=== PATIENT | female | born 1950 | race Caucasian/White ===

== ENCOUNTER 2024-01-11 05:22 | Inpatient (IN) ==
--- NOTE | 2023-12-31 13:38 | Anesthesiology Consultation ---
Date of Service December 31, 2023 Assessment & Plan (1) Encounter for pre-operative examination: Plan - cardiology office visit 12/30/23: "...nonprogressive functional class II shortness of breath and fatigue...less frequent intermittent nonexertional/exertional episodes of substernal chest heaviness/tightness which last few minutes and resolve spontaneously...leg swelling is improved...pacemaker interrogation from 05/18/2023 is reviewed and showed atrial paced 18% ventricular paced 1%, no significant arrhythmia. continue medical therapy for CAD, has 95% sub branch of D1 which is a small vessel, not amenable for a stent...follow up 3 months..." - cardiology clearance 12/10/23: "...low to intermediate cardiac risk..." - [facility] pacemaker. - check BSG am DOS. - Per automotive service assistant on 12/10/23: No known infectious disease contacts, current infectious disease symptoms in past 10 days or COVID positive test result in the past 30 days. Chart Review Chart Review: Acceptable Risk for Surgery and Patient NOT seen in Pre Admission Testing History Surgery Operation Date: 01/11/24 08:00 Proposed Procedures p Left Common Femoral Endarterectomy and - Guicho Ruffin MD s Left Lower Extremity Angiogram with Intervention - Guicho Ruffin MD Height/Weight Height: 4 ft 9 in Weight: 95.708 kg Allergies Allergy/AdvReac Type Severity Reaction Status Date / Time adhesive tape Allergy Unknown surgical Verified 12/10/23 11:52 tape with blood work only per pt - bruising. naproxen [From Aleve] Allergy Unknown itchiness Verified 12/10/23 11:52 Medications Home Medications Medication Instructions Recorded Confirmed Last Taken acetaminophen 500 mg tablet 1,000 mg PO UD PRN Pain 12/10/23 12/10/23 Unknown (Tylenol Extra Strength) aspirin 81 mg tablet,delayed 81 mg PO QAM 12/10/23 12/10/23 Unknown release clopidogrel 75 mg tablet 75 mg PO DAILY 12/10/23 12/10/23 Unknown furosemide 20 mg tablet 20 mg PO QAM 12/10/23 12/10/23 Unknown glimepiride 4 mg tablet 4 mg PO QAM 12/10/23 12/10/23 Unknown insulin glargine 100 unit/mL (3 20 unit subcut HS 12/10/23 12/10/23 Unknown mL) subcutaneous pen (Basaglar KwikPen U-100 Insulin) isosorbide mononitrate 30 mg 30 mg PO QAM 12/10/23 12/10/23 Unknown tablet,extended release 24 hr lisinopril 20 mg tablet 20 mg PO QAM 12/10/23 12/10/23 Unknown magnesium oxide 400 mg PO QPM 12/10/23 12/10/23 Unknown metformin 500 mg tablet 500 mg PO BID 12/10/23 12/10/23 Unknown sbaxhcmu-zsbb-yzxv 8 mg-folic 400 1 tab PO DAILY 12/10/23 12/10/23 Unknown mcg-K 50 mcg-lutein 300 mcg tablet (Centrum Silver Women) nitroglycerin 0.4 mg sublingual 0.4 mg sublingual UD PRN Chest Pain 12/10/23 12/10/23 Unknown tablet pantoprazole 40 mg tablet,delayed 40 mg PO QAM 12/10/23 12/10/23 Unknown release propranolol 20 mg tablet 20 mg PO BID 12/10/23 12/10/23 Unknown rosuvastatin 10 mg tablet 10 mg PO HS 12/10/23 12/10/23 Unknown Past Medical History Medical History (Updated 12/31/23 @ 13:36 by Preeti Rubio PA-C) Acid reflux CAD (coronary artery disease) Diabetes IDDM History of fractured vertebra lumbar HTN (hypertension) Hyperlipidemia Low kidney function Oxygen decrease uses O2 3 L PRN. Pulmonary hypertension Mild to moderate pulmonary hypertension, RVSP 41-46 mmHg Sleep apnea cpap with oxygen (5L). Vascular problem blockage in both legs. Upcoming sx for left. Past Surgical History Surgical History History of cardiac cath mutliple for chest pain, total of 6 stents. Most recent cath: Nov 2023 no stent(s) placed. ([facility]) History of cholecystectomy History of left cataract surgery History of pacemaker (04/08/10) electrical problem per/no other details known. [facility] Carter, last check: approx 09/2023. History of right cataract surgery Social History Smoking Status: Former smoker Do You Dip or Chew Tobacco: No Smoking End Date: 14-15 yr ago. Hx Alcohol Use: No Hx Substance Use: No substance use type: does not use Testing Laboratory Results 12/13/23 WBC: 6.3 H/H: 12/ PLATELETS: 197,000 SODIUM: 138 POTASSIUM: 4.2 CHLORIDE: 103 CO2: 24 BUN: 19 CREATININE: 1.1 GLUCOSE: 180 PT: 13 PTT: 27 INR: 1.1 Electrocardiogram Date: 12/13/23 NSR, rate [address] abnormality Chest X-Ray Date: 12/13/23 No acute cardiopulmonary abnormality. Echocardiogram Date: 02/16/23 EF 55% Mild aortic stenosis (MARIE 1.4 cm2, mean gradient 11 mmHg) Mild aortic valve regurgitation Mild to moderate tricuspid regurgitation Mild to moderate pulmonary hypertension, RVSP 41-46 mmHg No diastolic dysfunction Stress Test Date: 03/01/23 Anterior wall ischemia and apical ischemia EF 75% Cardiac Catheterization Date: 03/19/23 LAD: 30% stenosis, 95% stenosis 1st diagonal lesion; in-stent restenosis Left main: minimal luminal irregularities Cx: 40% stenosis RCA: 30% stenosis, in-stent restenosis Continue medical therapy Other Testing Pacemaker report 11/16/23 [facility] Carter DDD Normal remote follow-up. No significant device-related abnormalities were noted. No events
[2024-01-11] MEDS: LACTATED RINGER'S 1,000 ML IV SCH ×2 (06:00→13:47)
[2024-01-11] MEDS ORDERED: HYDROmorphone INJ 1 MG/ML SYRINGE IV PRN (07:19)
[2024-01-11] MEDS ORDERED: fentaNYL citrate PF 100 MCG/2 ML VIAL IV PRN (07:19)
[2024-01-11] MEDS ORDERED: fentaNYL citrate PF 100 MCG/2 ML VIAL ONE ×2 (07:19→08:51)
[2024-01-11] MEDS ORDERED: ePHEDrine sulfate 50 MG/ML AMP IV PRN (07:19)
[2024-01-11] MEDS ORDERED: PROMETHAZINE HCL 6.25 MG in SODIUM CHLORIDE 0.9% 50 ML IV PRN (07:19)
[2024-01-11] MEDS ORDERED: ATROPINE SULFATE 0.1 MG/ML 10ML SYR IV PRN (07:19)
[2024-01-11] MEDS ORDERED: ONDANSETRON INJ 2 MG/ML 2 ML VIAL IV PRN ×2 (07:19→12:46)
[2024-01-11] MEDS ORDERED: ONDANSETRON INJ 2 MG/ML 2 ML VIAL ONE (07:20)
[2024-01-11] MEDS ORDERED: ROCURONIUM BROMIDE 10 MG/ML 5 ML VIAL IV ONE ×2 (07:20→09:19)
[2024-01-11] MEDS ORDERED: LIDOCAINE 2% 2 ML VIAL/AMP(20MG/ML) INFIL ONE (07:20)
[2024-01-11] MEDS ORDERED: PROPOFOL IV EMULSION 10 MG/ML 20 ML VIAL IV ONE ×2 (07:20→10:59)
[2024-01-11] MEDS ORDERED: DEXAMETHASONE SOD INJ 4 MG/ML VIAL ONE (07:20)
--- NOTE | 2024-01-11 07:41 | History & Physical Report ---
Date of Service January 11, 2024 Assessment & Plan (1) Claudication of left lower extremity: Plan: Patient is admitted for left common femoral endarterectomy and intervention of the left lower extremity. I have discussed the risks options and benefits of the procedure with the patient. The patient understands the risks options and benefits and agrees to the procedure. History of Present Illness Chief Complaint: Left leg claudication Primary Care Provider: Rodney Fung MD Ms. 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 She also has history of hypertension, DM, cancer, heart disease, kidney disease and CAD s/p [address] ents in [id number]. Patient also has a pacemaker placed 2010. Of note, she states that April or May of this year, she underwent cardiac catheterization given that she had sudden chest pressure and was found to have a new small occlusion of one of her coronaries but was told this area was not amenable to stenting. Her medications were optimized by the cardiology team. She is also on DAPT. Since then, she has not had any other symptoms of chest pain or SOB. As far as her lower extremity PAD, she does have significant lifestyle limiting claudication and can barely walk from the parking lot into the office without having pain. She gets pain after walking about 30 ft consistently. She also has rest pain that wakes her up multiple nights a week (L>R). She also sometimes wakes up at night because her left toes feel tight. When she is sitting, she can sometimes see rubor of her left toes. Patient has a 2 PPD smoking history for 40 years. She has not had any wounds on her lower extremities. She is on a statin. Patient has an angiogram from her supervisor lace tearing that shows significant left common femoral artery stenosis involving the origin of the profunda as well as the SFA. There is also a left SFA occlusion with distal reconstitution of the popliteal almost at the level of the knee. There is two vessel runoff via AT and peroneal to about the level of the mid calf. No further images available for evaluation. Allergies Allergy/AdvReac Type Severity Reaction Status Date / Time adhesive tape Allergy Unknown surgical Verified 01/11/24 05:56 tape with blood work only per pt - bruising. naproxen [From Aleve] Allergy Unknown itchiness Verified 01/11/24 05:56 Home Medications Medication Instructions Recorded Confirmed Type acetaminophen 500 mg tablet 1,000 mg PO UD PRN Pain 12/10/23 01/11/24 History (Tylenol Extra Strength) aspirin 81 mg tablet,delayed 81 mg PO QAM 12/10/23 01/11/24 History release clopidogrel 75 mg tablet 75 mg PO DAILY 12/10/23 01/11/24 History furosemide 20 mg tablet 20 mg PO QAM 12/10/23 01/11/24 History glimepiride 4 mg tablet 4 mg PO QAM 12/10/23 01/11/24 History insulin glargine 100 unit/mL (3 20 unit subcut HS 12/10/23 01/11/24 History mL) subcutaneous pen (Basaglar KwikPen U-100 Insulin) isosorbide mononitrate 30 mg 30 mg PO QAM 12/10/23 01/11/24 History tablet,extended release 24 hr lisinopril 20 mg tablet 20 mg PO QAM 12/10/23 01/11/24 History magnesium oxide 400 mg PO QPM 12/10/23 01/11/24 History metformin 500 mg tablet 500 mg PO BID 12/10/23 01/11/24 History nufwfzjz-yacu-iprf 8 mg-folic 400 1 tab PO DAILY 12/10/23 01/11/24 History mcg-K 50 mcg-lutein 300 mcg tablet (Centrum Silver Women) nitroglycerin 0.4 mg sublingual 0.4 mg sublingual UD PRN Chest Pain 12/10/23 01/11/24 History tablet pantoprazole 40 mg tablet,delayed 40 mg PO QAM 12/10/23 01/11/24 History release propranolol 20 mg tablet 20 mg PO BID 12/10/23 01/11/24 History rosuvastatin 10 mg tablet 10 mg PO HS 12/10/23 01/11/24 History Past Med/Surg History Problem List (Updated 01/11/24 @ 07:40 by Guicho Ruffin MD) Claudication of left lower extremity Encounter for pre-operative examination Medical History CAD (coronary artery disease) Pulmonary hypertension Mild to moderate pulmonary hypertension, RVSP 41-46 mmHg Oxygen decrease uses O2 3 L PRN. Diabetes IDDM Sleep apnea cpap with oxygen (5L). History of fractured vertebra lumbar Vascular problem blockage in both legs. Upcoming sx for left. Acid reflux HTN (hypertension) Hyperlipidemia Low kidney function Surgical History History of left cataract surgery History of right cataract surgery History of cholecystectomy History of cardiac cath mutliple for chest pain, total of 6 stents. Most recent cath: Nov 2023 no stent(s) placed. ([facility]) History of pacemaker (04/08/10) electrical problem per/no other details known. [facility] [facility], last check: approx 09/2023. Social History Smoking Status: Former smoker Tobacco Type: Cigarettes Smoking End Date: 14-15 yr ago.; Do You Dip or Chew Tobacco: No; Hx Alcohol Use: No Hx Substance Use: No Preferred Language: Wallisian Communication Ability: Effective Communication Ability Comment: Sister helps with interview, helps with care giving. Building Rental Superintendent Required: No Beliefs That Will Affect Care: None Current Living Situation: Alone Other Information That Helps Us Care for You: Yes (inquiring with sxn office about post op home care/planned wound vac.) Feels Safe at Home: Yes Assistive Devices: CPAP, Denture - Upper and Walker Assistive Devices Comment: cpap with oxygen 5 L at night. Oxygen prn 3L. Review of Systems All systems reviewed & are unremarkable except as noted in HPI & below Physical Exam Physical Exam: Physical exam: NAD. BP 144/64 on the right, 136/64 on the left. HR is 64. Saturating 93% on RA. Patient is obese. Lungs are clear. Heart has a rrr. Abdominal exam is benign. Unable to palpate femoral pulses. Bilateral lower extremities are warm bilaterally. The left foot has slightly decreased sensation compared to the right but overall sensation is preserved. Motor is intact in bilateral lower extremities. No open wounds visible. Left toes have dependent rubor. Otherwise, no discoloration of the lower extremities. Left foot has monophasic AT and PT signals and right foot has biphasic AT and PT signals. Results & Data Vital Signs (Past 12 Hours) Vital Signs Temp Pulse Resp BP BP Pulse Ox O2 Del Method 01/11/24 06:01 136/81 01/11/24 05:49 36.9 C 73 20 169/7 H 93 Room Air
--- OUTSIDE RECORDS SUMMARY | 2024-01-11 07:43 | External Medical Summary | Continuity of Care Document ---
Author Name Unknown Organization [facility] [address] [facility] Address [address] [place], [place] [id number] Care Team Providers Care Payroll Assistant Name Role Phone Rodney Fung Primary Care Physician [phone] [facility]counter [id number] Date(s): 12/07/23 - 12/07/23 [facility] [address], [address] [place] [address] [phone] Encounter Diagnosis Atherosclerosis of [place] arteries of extremities with intermittent claudication, bilateral legs(Discharge Diagnosis) - 12/07/23 Discharge Disposition: Home or Self Care Attending Physician: MD Ruffin Eugene J Referring Physician: MD Jace, Geronimo Allergies, Adverse Reactions, Alerts Substance Criticality Severity Reaction Reaction Severity Status Aleve Hives Active Tape Bruising Active Medications aspirin 81 mg oral delayed release tablet Start: 12/07/23 2:28:00 PM EDT, 1 tab, PO, Daily Start Date: 12/07/23 Status: Ordered Basaglar KwikPen 100 units/mL subcutaneous solution INJECT 20 UNITS INTO THE SKIN AT BEDTIME Start Date: 12/07/23 Status: Ordered Centrum Silver oral tablet Start: 12/07/23 2:28:00 PM EDT, 1 tab, PO, Daily Start Date: 12/07/23 Status: Ordered clopidogrel 75 mg oral tablet TAKE ONE TABLET BY MOUTH DAILY DIRECTED Start Date: 12/07/23 Status: Ordered furosemide 20 mg oral tablet TAKE ONE TABLET BY MOUTH EVERY DAY Start Date: 12/07/23 Status: Ordered glimepiride 4 mg oral tablet TAKE ONE TABLET BY MOUTH DAILY WITH BREAKFAST OR FIRST MEAL OF THE DAY Start Date: 12/07/23 Status: Ordered isosorbide mononitrate 30 mg oral tablet, extended release TAKE ONE TABLET BY MOUTH EVERY DAY IN THE MORNING Start Date: 12/07/23 Status: Ordered lisinopril 20 mg oral tablet TAKE ONE TABLET BY MOUTH EVERY DAY Start Date: 12/07/23 Status: Ordered magnesium oxide 400 mg (241.3 mg elemental magnesium) oral tablet Start: 12/07/23 2:29:00 PM EDT, 1 tab, PO, Daily, leg cramps Start Date: 12/07/23 Status: Ordered metFORMIN 500 mg oral tablet TAKE TWO TABLETS BY MOUTH TWICE DAILY WITH MEALS Start Date: 12/07/23 Status: Ordered pantoprazole 40 mg oral delayed release tablet TAKE ONE TABLET BY MOUTH EVERY DAY Start Date: 12/07/23 Status: Ordered propranolol 20 mg oral tablet TAKE ONE TABLET BY MOUTH TWICE DAILY Start Date: 12/07/23 Status: Ordered rosuvastatin 10 mg oral tablet TAKE ONE TABLET BY MOUTH AT BEDTIME Start Date: 12/07/23 Status: Ordered Mental Status 12/07/23 Barriers to Learning one year None evide nt Mandatory Health Literacy Documentation Yes Health Literacy Communication Barriers N ever Primary Language Sami Problem List Condition Confirmation Course Effective Dates Status Health St atus Informant (atherosclerosis) Confirmed Active Diagnosis Diagnosis Type Effective Dates Health Status Clinical Service Informant Atherosclerosis of [place] arteries of extremities with intermittent claudication, bilateral legs Discharge Diagnosis 12/07/23 Vital Signs Most recent to oldest [Reference Range]: 1 2 Heart Rate 64 bpm (12/07/23 2:49 PM) Blood Pressure 144/64mmHg (12/07/23 2:56 PM) 136/64mmHg (12/07/23 2:49 PM) Cuff Pulse Pressure 80 mmHg (12/07/23 2:56 PM) 72 mmHg (12/07/23 2:49 PM) BP Location # 1 Right Arm (12/07/23 2:56 PM) Left Arm (12/07/23 2:49 PM) Social History Social History Type Response Smoking Status Former Smoker, quit > 1 yr Sex Female Sex Representation Female (finding) Patient Care team information Care Team Personnel Name: MD Antonieta, Rodney Bender Position: Referring Member Role: Primary Care Provider Address: [address] [place] [id number] [place]
[2024-01-11] MEDS: ceFAZolin 2000MG 2,000 MG/15 ML SYR IV SCH ×2 (08:00→17:28)
[2024-01-11] MEDS: BUPIVACAINE/EPINEPHRINE 0.5% MPF 1:200,000 30 ML VIAL ONE (09:03)
[2024-01-11] MEDS: PAPAVERINE HCL INJ 30 MG/ML 2 ML VIAL ONE (09:03)
[2024-01-11] MEDS: LIDOCAINE 1% LOCAL 20 ML VIAL ONE (09:03)
[2024-01-11] MEDS ORDERED: GLYCOPYRROLATE 0.2 MG/ML VIAL ONE (09:06)
[2024-01-11] MEDS ORDERED: diphenhydrAMINE 50 MG/ML VIAL ONE (09:06)
[2024-01-11] MEDS ORDERED: PHENYLEPHRINE HCL 10 MG/ML VIAL ONE (09:07)
[2024-01-11] MEDS ORDERED: DexMEDEtomidine HCL IV 100 MCG/ML VIAL IV ONE (09:11)
[2024-01-11] MEDS ORDERED: HEPARIN SOD (PORCINE) 1000 UNIT/ML ONE (09:32)
[2024-01-11] MEDS: GELATIN SPONGE SZ 100 ONE (10:32)
[2024-01-11] MEDS: THROMBIN FOR SOLN 20000 UNIT KIT ONE (10:33)
[2024-01-11] MEDS: ceFAZolin 330 MG/ML 1 GM VIAL ONE (10:33)
[2024-01-11] MEDS ORDERED: SUGAMMADEX SODIUM 200 MG/2 ML VIAL IV ONE (10:34)
--- NOTE | 2024-01-11 10:38 | Post Operative Brief Note ---
Immediate Post Op Note Date of Surgery January 11, 2024 Pre & Post Diagnosis Operation Date: 01/11/24 08:00 Pre-Op Diagnosis: Claudication of left lower extremity Post-Op Diagnosis: Claudication of left lower extremity I identified the patient and participated in the time-out.: Yes Procedure Operation Date: 01/11/24 08:00 Actual Procedures p Left Common Femoral Endarterectomy (Left) with bovine patch- Guicho Ruffin MD s Left Lower Extremity Angiogram with Intervention(Left) - Guicho Ruffin MD Surgeon Guicho Ruffin MD Child Welfare Caseworker MD Anel L.Minarchick,PAC Estimated Blood Loss 100 Findings Consistent with Post-Op Diagnosis Drains Fermin Catheter (16 [place] 10mL balloon Fermin catheter inserted prior to start of procedure by Billie Puentes RN) Anesthesia Type General Complications none Disposition Accompanied Patient To Recovery: No Disposition: Recovery Room
[2024-01-11] MEDS: VISIPAQUE IV ONE (10:45)
[2024-01-11] MEDS: HEPARIN (PORCINE) 1000 UNIT/ML 10 ML (CATH LAB USE ONLY) ONE (10:51)
--- NOTE | 2024-01-11 10:58 | Operative Report ---
Post Operative Report Pre & Post Diagnosis Operation Date: 01/11/24 08:00 Pre-Op Diagnosis: Claudication of left lower extremity Post-Op Diagnosis: Claudication of left lower extremity I identified the patient and participated in the time-out.: Yes Procedure Operation Date: 01/11/24 08:00 Actual Procedures p Left Common Femoral Endarterectomy (Left) - Guicho Ruffin MD s Left Lower Extremity Angiogram(Left) - Guicho Ruffin MD Surgeon Guicho Ruffin MD Field Irrigation Worker MD Tari Tam,PAC Estimated Blood Loss 100 Findings Consistent with Post-Op Diagnosis Severely calcified left common femoral artery, SFA and profunda. Following endarterectomy with patch angioplasty there was a good pulse throughout the BLOCKERS SKIVER, SFA and profunda. On angiogram there was a mid and distal SFA occlusion with reconstitution of the above knee popliteal artery with two vessel runoff to the foot Specimens None Anesthesia Type General Complications None Disposition Accompanied Patient To Recovery: Yes Indications Lifestyle limiting claudication of the left lower extremity Description of Procedure The patient was taken to the operating room and placed in the supine position. General endotracheal anesthesia was induced. The left groin and left leg were prepped and draped in the usual sterile fashion. A longitudinal incision was made over the common femoral artery using a #15 blade scalpel. Dissection was carried down through subcutaneous tissue using electrocautery followed by Metzenbaum scissions. The left common femoral artery and then the distal left external iliac artery, left profunda femoris, and left SFA were dissected free and controlled with vessel loops. Patient was systemically heparinized with a goal ACT of > 200. Following heparin administration the aforementioned arteries were clamped in order A #11 blade was then used to make an arteriotomy in the BLOCKERS SKIVER. Gonzalez scissors were used to extend proximally and distally. There was a heavily calcified plaque in the BLOCKERS SKIVER extending into the SFA and profunda. This was endarterectomized. Patch angioplasty was then performed of the left BLOCKERS SKIVER defect with a bovine pericardial patch using 5-0 Prolene suture. Just prior to completion of the patch all clamped vessels were allowed to backbleed and the artery was flushed with heparinized saline. The patch was then completed and all vessels unclamped. The SFA was then accessed with a micropuncture needle and using modified Seldinger technique a 5Fr micropuncture sheath was advanced into the BLOCKERS SKIVER. A diagnostic angiogram of the left leg was performed. There was no proximal disease with the profunda briskly filling the above knee popliteal artery through collaterals due to a distal SFA occlusion. The common was patent with good flow. At completion, there was an excellent Doppler signal throughout the proximal and distal profunda. The wound was closed with running 2-0 Vicryl sutures followed by 3-0 running subcutaneous Vicryl sutures. The skin was closed with austin. A total of 15cc contrast, 0.2min fluoro time and 27 mGy were used for the case Dr. Ruffin was present and scrubbed for the entire procedure. I attest to the content of the Intraoperative Record and any orders documented therein. Any exceptions are noted below. Supervising Physician Co-Signing Physician Notes Guicho Ruffin MD
[2024-01-11] MEDS ORDERED: NITROGLYCERIN SL 0.4 MG/TAB TAB SL PRN (12:46)
[2024-01-11] MEDS ORDERED: MoRPHine SULFATE 4 MG/ML 1 ML CARP\\VIAL IV PRN (12:46)
--- NOTE | 2024-01-11 13:15 | Critical Care Consultation ---
Date of Consultation January 11, 2024 Assessment & Plan (1) Claudication of left lower extremity: (2) CAD (coronary artery disease): (3) Pulmonary hypertension: (4) Diabetes: (5) Sleep apnea: (6) HTN (hypertension): (7) Hyperlipidemia: Plan 2D echo 02/16/2023: EF 55%, mild AI, mild to moderate TR, mild to moderate pulmonary hypertension -- Claudication of the left lower extremity S/p left common femoral endarterectomy 01/11/[address] Ruffin Monitor H&H Monitor for signs of ischemia --Pulmonary hypertension Combination of type II and III --BETTY On CPAP at home --History of coronary artery disease S/p stents last 1 being in 2004 Continue with Plavix and aspirin -- Dyslipidemia Continue with rosuvastatin -- Diabetes type 2 Continue with ICU hypoglycemia protocol --Prophylaxis VTE: None GI: Pantoprazole Lines: Peripheral Diet: Cardiac Plan: Monitor H&H Monitor pulse of the lower extremities with the help of Doppler Tylenol for headache Continue with patient's home CPAP machine Would recommend to keep O2 saturation between 90-92% given history of pulmonary hypertension Please note the above document was generated using voice recognition software. It may contain grammatical, syntax or spelling errors.Any formal questions or concerns about the content, text or information contained within the body of this dictation should be directly addressed to the provider for clarification. History of Present Illness Attending Physician: Guicho Ruffin MD History of Present Illness 73-year-old female present to the hospital for left femoral endarterectomy Past medical history: Peripheral vascular disease with left BASS FISHER stenosis as well as SFA occlusion, diabetes, CKD, coronary artery disease s/p stents, history of pacemaker Was transferred to the ICU post surgery for monitoring At the time of examination patient was not in any respiratory distress She was saturating 98% on 4 L nasal cannula, I went down to 2 L Denied any chest pain, no shortness of breath No abdominal pain, no nausea vomiting Did complain of some headache for which she was getting Tylenol. No blurry vision No dysuria or diarrhea prior to coming to the hospital Social history: [id number] smoking, quit in 2009 Allergies Allergy/AdvReac Type Severity Reaction Status Date / Time adhesive tape Allergy Unknown surgical Verified 01/11/24 05:56 tape with blood work only per pt - bruising. naproxen [From Aleve] Allergy Unknown itchiness Verified 01/11/24 05:56 Home Medications Medication Instructions Recorded Confirmed Type acetaminophen 500 mg tablet 1,000 mg PO UD PRN Pain 12/10/23 01/11/24 History (Tylenol Extra Strength) aspirin 81 mg tablet,delayed 81 mg PO QAM 12/10/23 01/11/24 History release clopidogrel 75 mg tablet 75 mg PO DAILY 12/10/23 01/11/24 History furosemide 20 mg tablet 20 mg PO QAM 12/10/23 01/11/24 History glimepiride 4 mg tablet 4 mg PO QAM 12/10/23 01/11/24 History insulin glargine 100 unit/mL (3 20 unit subcut HS 12/10/23 01/11/24 History mL) subcutaneous pen (Basaglar KwikPen U-100 Insulin) isosorbide mononitrate 30 mg 30 mg PO QAM 12/10/23 01/11/24 History tablet,extended release 24 hr lisinopril 20 mg tablet 20 mg PO QAM 12/10/23 01/11/24 History magnesium oxide 400 mg PO QPM 12/10/23 01/11/24 History metformin 500 mg tablet 500 mg PO BID 12/10/23 01/11/24 History skdjhbzg-uqir-deae 8 mg-folic 400 1 tab PO DAILY 12/10/23 01/11/24 History mcg-K 50 mcg-lutein 300 mcg tablet (Centrum Silver Women) nitroglycerin 0.4 mg sublingual 0.4 mg sublingual UD PRN Chest Pain 12/10/23 01/11/24 History tablet pantoprazole 40 mg tablet,delayed 40 mg PO QAM 12/10/23 01/11/24 History release propranolol 20 mg tablet 20 mg PO BID 12/10/23 01/11/24 History rosuvastatin 10 mg tablet 10 mg PO HS 12/10/23 01/11/24 History Patient History Medical History CAD (coronary artery disease) Pulmonary hypertension Mild to moderate pulmonary hypertension, RVSP 41-46 mmHg Oxygen decrease uses O2 3 L PRN. Diabetes IDDM Sleep apnea cpap with oxygen (5L). History of fractured vertebra lumbar Vascular problem blockage in both legs. Upcoming sx for left. Acid reflux HTN (hypertension) Hyperlipidemia Low kidney function Surgical History History of left cataract surgery History of right cataract surgery History of cholecystectomy History of cardiac cath mutliple for chest pain, total of 6 stents. Most recent cath: Nov 2023 no stent(s) placed. ([facility]) History of pacemaker (04/08/10) electrical problem per/no other details known. [facility], last check: approx 09/2023. Social History Smoking Status: Former smoker Tobacco Type: Cigarettes Smoking End Date: 14-15 yr ago.; Do You Dip or Chew Tobacco: No; Hx Alcohol Use: No Hx Substance Use: No Preferred Language: Lao Communication Ability: Effective Communication Ability Comment: Sister helps with interview, helps with care giving. Plant Floor Automation Manager Required: No Beliefs That Will Affect Care: None Current Living Situation: Alone Other Information That Helps Us Care for You: Yes (inquiring with sxn office about post op home care/planned wound vac.) Feels Safe at Home: Yes Assistive Devices: CPAP, Denture - Upper and Walker Assistive Devices Comment: cpap with oxygen 5 L at night. Oxygen prn 3L. Review of Systems Review of Systems: All systems reviewed & are unremarkable except as noted in HPI & below Physical Exam Physical Exam: Constitutional: No acute distress HEENT: EOMI, PERRLA Respiratory system: Good air entry bilaterally, no wheeze, no rhonchi, no crackles CVS: S1-S2 positive, 2 out of 6 systolic murmur appreciated best at aorta Abdomen: Soft, nontender, nondistended, positive bowel sounds x4 Extremities: +1 pulses bilaterally radialis/ dorsalis pedis, no cyanosis, no edema Neuro: Awake alert oriented x3 Psych: Normal mood and affect G/U: Positive Fermin Skin: no rashes, warm and dry Lymphatic: no cervical or axillary lymphadenopathy Results & Data Results & Data Vital Signs (Past 12 Hours) Vital Signs Temp Pulse Pulse Resp BP BP Pulse Ox 01/11/24 12:10 36.6 C 78 20 136/60 97 01/11/24 11:50 36.4 C L 77 17 131/56 L 94 01/11/24 11:40 77 16 128/81 94 01/11/24 11:30 78 20 136/68 94 01/11/24 11:20 80 18 138/65 95 01/11/24 11:14 36.5 C 81 16 138/84 96 01/11/24 06:01 136/81 01/11/24 05:49 36.9 C 73 20 169/7 H 93 O2 Del Method O2 Flow Rate 01/11/24 12:10 Nasal Cannula 4 01/11/24 11:50 Nasal Cannula 4 01/11/24 11:40 Nasal Cannula 4 01/11/24 11:30 Oxymask 5 01/11/24 11:20 Oxymask 5 01/11/24 11:14 Oxymask 13 01/11/24 06:01 01/11/24 05:49 Room Air Coding Level of Care Code 07789 IN/OBS CONSULT LVL 3,45M Diagnoses Claudication of left lower extremity I73.9 CAD (coronary artery disease) I25.10 Pulmonary hypertension I27.20 Diabetes E11.9 Sleep apnea G47.30 HTN (hypertension) I10 Hyperlipidemia E78.5
[2024-01-11] MEDS: ACETAMINOPHEN 500 MG TAB PO PRN (13:26)
--- NOTE | 2024-01-11 15:41 | Anesthesiology Progress Note ---
Date of Service January 11, 2024 Anesthesia Post Procedure Vital Signs Vital Signs: Temp Pulse Pulse Resp BP BP Pulse Ox 01/11/24 12:10 36.6 C 78 20 136/60 97 01/11/24 11:50 36.4 C L 77 17 131/56 L 94 01/11/24 11:40 77 16 128/81 94 01/11/24 11:30 78 20 136/68 94 01/11/24 11:20 80 18 138/65 95 01/11/24 11:14 36.5 C 81 16 138/84 96 01/11/24 06:01 136/81 01/11/24 05:49 36.9 C 73 20 169/7 H 93 O2 Del Method O2 Flow Rate 01/11/24 12:10 Nasal Cannula 4 01/11/24 11:50 Nasal Cannula 4 01/11/24 11:40 Nasal Cannula 4 01/11/24 11:30 Oxymask 5 01/11/24 11:20 Oxymask 5 01/11/24 11:14 Oxymask 13 01/11/24 06:01 01/11/24 05:49 Room Air Transfer of Care Handoff Completed per policy Notes Mental Status: alert / awake / arousable and participated in evaluation Patient Amnestic to Procedure: Yes Nausea / Vomiting: adequately controlled Pain: adequately controlled Airway Patency, RR, SpO2: stable & adequate BP & HR: stable & adequate Hydration State: stable & adequate Anesthetic Complications: no major complications apparent and Pt Satisfied with anesthetic care
[2024-01-11] MEDS ORDERED: PHARMACY GLYCEMIC MGMT CONSULT PRN (17:56)
[2024-01-11] MEDS ORDERED: GLUCOSE 40% GEL 15 GM TUBE PO PRN (18:15)
[2024-01-11] MEDS ORDERED: CARBOHYDRATES FOR HYPOGLYCEMIA PO PRN (18:15)
[2024-01-11] MEDS ORDERED: GLUCOSE 10 TAB/TUBE PO PRN (18:15)
[2024-01-11] MEDS ORDERED: GLUCAGON FOR INJ 1 MG VIAL SQ PRN (18:15)
[2024-01-11] MEDS ORDERED: DEXTROSE 50% 50 ML SYRINGE IV PRN (18:15)
[2024-01-11] MEDS: INSULIN ASPART PER UNIT CHARGE SC SCH (18:26)
[2024-01-11] MEDS: PROPRANOLOL HCL 20 MG TAB PO SCH (20:26)
[2024-01-11] MEDS: ROSUVASTATIN CALCIUM 10 MG TAB PO SCH (20:26)
[2024-01-11] MEDS: LANTUS PER UNIT CHARGE SC SCH (20:27)
[2024-01-11] MEDS: MAGNESIUM OXIDE 400 MG TAB PO SCH (20:27)
[2024-01-11] MEDS ORDERED: LANTUS PER UNIT CHARGE SC ONE (21:15)
[2024-01-11] MEDS: LANTUS PER UNIT CHARGE SC ONE (21:39)
[2024-01-12] MEDS: INSULIN ASPART PER UNIT CHARGE SC SCH (00:12)
[2024-01-12 04:51] LABS: Basophils # (auto) 0.06 K/uL (0.00-0.20); Basophils % (auto) 0.7 %; Eosinophils # (auto) 0.16 K/uL (0.00-0.50); Eosinophils % (auto) 1.7 %; Hematocrit (blood only) 31.5 % (37.0-47.0); Hemoglobin 10.4 g/dl (12.0-16.0); Immature Granulocytes # (auto) 0.02 K/uL (0.01-0.20); Immature Granulocytes % (auto) 0.2 %; Lymphocytes # (auto) 1.65 K/uL (1.20-3.40); Lymphocytes % (auto) 17.9 %; Mean Corpuscular Volume 90.8 fL (80.0-100.0); Mean Platelet Volume 10.6 fL (9.4-12.4); Monocytes # (auto) 0.96 K/uL (0.11-0.59); Monocytes % (auto) 10.4 %; Neutrophils # (auto) 6.36 K/uL (1.40-6.50); Neutrophils % (auto) 69.1 %; Platelet Count 217 K/uL (130-400); RDW Standard Deviation 46.5 fL (36.4-46.3); Red Blood Count 3.47 M/uL (4.20-5.40); White Blood Count 9.21 K/ul (4.8-10.8)
[2024-01-12 04:58] LABS: BUN Creatinine Ratio 11.5 (10-20); Creatinine Clr Calc Pharmacy 47.4 ml/min; Potassium 4.1 mmol/L (3.5-5.1)
[2024-01-12 05:26] LABS: Magnesium 1.7 mg/dl (1.7-2.4); Phosphorus 3.7 mg/dl (2.5-4.9)
[2024-01-12 07:04] LABS: Estimated Average Glucose 206 mg/dl; Hemoglobin A1C 8.8 % (4.5-5.6)
[2024-01-12] MEDS ORDERED: ACETAMINOPHEN 500 MG TAB PO PRN (07:29)
[2024-01-12] MEDS: FUROSEMIDE 20 MG TAB PO SCH (08:33)
[2024-01-12] MEDS: MULTIVITAMIN TAB PO SCH (08:33)
[2024-01-12] MEDS: ASPIRIN 81 MG ECTAB PO SCH (08:33)
[2024-01-12] MEDS: PANTOprazole 40 MG TAB PO SCH (08:33)
[2024-01-12] MEDS: CLOPIDOGREL BISULFATE 75 MG TAB PO SCH (08:33)
[2024-01-12] MEDS: lisinopril 20 MG TAB PO SCH (08:33)
[2024-01-12] MEDS: ISOSORBIDE MONO EXTENDED REL 30 MG TABCR PO SCH (08:33)
[2024-01-12] MEDS ORDERED: GLIMEPIRIDE 2 MG TAB PO SCH (09:00)
--- NOTE | 2024-01-12 10:45 | Critical Care Progress Note ---
Date of Service January 12, 2024 Assessment & Plan (1) Claudication of left lower extremity: (2) CAD (coronary artery disease): (3) Pulmonary hypertension: (4) Diabetes: (5) Sleep apnea: (6) HTN (hypertension): (7) Hyperlipidemia: Plan 2D echo 02/16/2023: EF 55%, mild AI, mild to moderate TR, mild to moderate pulmonary hypertension -- Claudication of the left lower extremity S/p left common femoral endarterectomy 01/11/[address] Ruffin Monitor H&H Monitor for signs of ischemia --Normocytic anemia Monitor H&H --Pulmonary hypertension Combination of type II and III --BETTY On CPAP at home --History of coronary artery disease S/p stents last 1 being in 2004 Continue with Plavix and aspirin -- Dyslipidemia Continue with rosuvastatin -- Diabetes type 2 Continue with ICU hypoglycemia protocol --Prophylaxis VTE: None GI: Pantoprazole Lines: Peripheral Diet: Cardiac Plan: In/out: -265, urine output 1765 Keep O2 saturation between 90-92% given pulmonary hypertension Tylenol as needed for headache Disposition as per vascular surgery Please note the above document was generated using voice recognition software. It may contain grammatical, syntax or spelling errors.Any formal questions or concerns about the content, text or information contained within the body of this dictation should be directly addressed to the provider for clarification. Admission and Anticipated Discharge Date Admission Date: January 11, 2024 Subjective Patient seen and examined at bedside. No acute distress, no dizziness overnight She was saturating 88-89% on room air. Denied any chest pain No abdominal pain Groin still sore. Takes Tylenol as needed Fair appetite, no nausea vomiting Did use her CPAP overnight Complaining of mild headache which is better than before Review of Systems 2 Review of Systems: All systems reviewed & are unremarkable except as noted in Subjective Physical Exam 2 Physical Exam: Constitutional: No acute distress HEENT: EOMI, PERRLA Respiratory system: Good air entry bilaterally, no wheeze, no rhonchi, no crackles CVS: S1-S2 positive, 2 out of 6 systolic murmur appreciated best at aorta Abdomen: Soft, nontender, nondistended, positive bowel sounds x4 Extremities: +1 pulses bilaterally radialis/ dorsalis pedis, no cyanosis, no edema Neuro: Awake alert oriented x3 Psych: Normal mood and affect G/U: Positive Fermin Skin: no rashes, warm and dry Lymphatic: no cervical or axillary lymphadenopathy Results & Data Results & Data Vital Signs (Past 12 Hours) Vital Signs Temp Pulse Resp BP Pulse Ox O2 Del Method O2 Flow Rate 01/12/24 09:08 Nasal Cannula 2 01/12/24 09:00 73 22 92 01/12/24 08:28 141/59 H 01/12/24 08:09 74 21 143/72 H 95 01/12/24 08:00 70 01/12/24 07:03 76 15 95 01/12/24 07:01 124/73 01/12/24 06:27 76 19 95 01/12/24 06:02 121/59 L 01/12/24 06:00 82 20 121/63 94 Nasal Cannula 2 01/12/24 05:00 72 20 121/86 95 Nasal Cannula 2 01/12/24 04:00 37.0 C 71 19 127/77 97 CPAP 5 01/12/24 03:00 70 21 124/90 96 CPAP 5 01/12/24 02:00 70 20 120/59 L 96 CPAP 5 01/12/24 01:00 69 21 113/56 L 96 CPAP 5 01/12/24 00:00 37.0 C 74 15 115/79 96 CPAP 5 01/12/24 00:00 73 01/11/24 23:00 66 19 115/55 L 96 CPAP 5 Laboratory Results 01/12/24 04:12 01/12/24 04:12 Coding Level of Care Code 47630 SUB INP/OBS CARE 2/35MIN Diagnoses Claudication of left lower extremity I73.9 CAD (coronary artery disease) I25.10 Pulmonary hypertension I27.20 Diabetes E11.9 Sleep apnea G47.30 HTN (hypertension) I10 Hyperlipidemia E78.5
--- NOTE | 2024-01-12 11:58 | Pharmacy Report ---
Pharmacy Glycemic Short Note 2 - Date of Service January 12, 2024 - Glycemic Short BSG Results (Last 24 hours): 01/11/24 01/11/24 01/11/24 13:19 16:22 17:58 Glucose POC Glucose 186 H 282 H 315 H* 01/11/24 01/11/24 01/12/24 17:59 20:17 00:11 Glucose POC Glucose 326 H* 244 H 120 H 01/12/24 01/12/24 01/12/24 04:05 04:12 07:32 Glucose 140 H POC Glucose 146 H 162 H 01/12/24 11:14 Glucose POC Glucose 231 H OUTPATIENT ANTIDIABETIC REGIMEN: * Basaglar 20 units SC HS * Metformin 500 mg PO BIDM * Glimepiride 4 mg PO with breakfast * HbA1c: 8.8% (01/12/24) ASSESSMENT: * 73 yo F admitted on 01/11/24 postoperatively following an endarterectomy with Dr. Ruffin. Pharmacy has been consulted to assist with inpatient glycemic management. Patient is a Type 2 diabetic as an outpatient. Please refer to outpatient regimen and most recent HbA1c above. * Postop BSGs last evening were 282-244-120 mg/dL. Received 30 units of basal + 12 units of bolus last night. No steroids received. Tolerating a T2DM diet. * Fasting BSG this AM was 162 mg/dL. Will reduce basal to home dose of 20 units tonight. * Tightened carb ratio this AM but lunchtime BSG increased to 231 mg/dL so tightened carb ratio further with lunch to reflect weight/stress of 3. PLAN FOR INPATIENT GLYCEMIC CONTROL: * Hold outpatient oral diabetes medications * Basal insulin * Lantus 20 units SC HS * Bolus insulin * NovoLog per scale ACHS or Q6hrs while NPO * Goal Range: Low 120 mg/dL - High 150 mg/dL * Correction Factor: 20 mg/dL/unit * Nutritional / Prandial insulin per carb ratio of 1 unit per 5 grams CHO consumed
[2024-01-12] MEDS: MAGNESIUM OXIDE 400 MG TAB PO STA (12:01)
[2024-01-12] MEDS: oxyCODONE/ACETAMINOPHEN 5mg/325mg TAB PO PRN (12:45)
--- NOTE | 2024-01-12 14:14 | Surgery Progress Note ---
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 Doing well post op. Discussed wtih Dr Ruffin, transfer to med/surg. (2) Claudication of left lower extremity: Plan: now POD #1 after surgery, doing well. Admission and Anticipated Discharge Date Admission Date: January 11, 2024 Subjective 73 yo f POD #1 after L TRAINING FACILITATOR endarterectomy with bovine patch, seen in f/u today. Pt states L groin incisional pain and some L heel pain, but no other complaints. Review of Systems Review of Systems: All systems reviewed & are unremarkable except as noted in HPI & below Physical Exam Constitutional: WD/WN, vitals as above + morbidly obese, cooperative and comfortable; not in distress Respiratory: normal respiratory effort, lungs clear to auscultation Auscultation: + diminished lung sounds Cardiovascular: Rate/Rhythm: regular rate and regular rhythm Vessels: posterior tibial pulses present (+ doppler BLE) and dorsalis pedis pulses present (+doppler BLE); + abnormal peripheral pulses Extremities: normal capillary refill (normal LLE, RLE 4 seconds); no edema Gastrointestinal (Abdomen): Inspection/Auscultation: abdomen normal to inspection and normal bowel sounds Percussion/Palpation: abdomen soft; abdomen nontender Musculoskeletal: no cyanosis or clubbing, extremities motor strength 5/5 Skin: + incision (L groin incision prevena, +t dana mild swelling, no hematoma) Neurologic: moves all extremities and awake; no focal motor deficits and not confused Psychiatric: A+Ox3, euthymic affect Results & Data Vital Signs (Past 12 Hours) Vital Signs Temp Pulse Resp BP Pulse Ox O2 Del Method O2 Flow Rate 01/12/24 11:15 68 22 105/56 L 97 01/12/24 09:08 Nasal Cannula 2 01/12/24 09:00 73 22 92 01/12/24 08:28 141/59 H 01/12/24 08:09 74 21 143/72 H 95 01/12/24 08:00 70 01/12/24 07:03 76 15 95 01/12/24 07:01 124/73 01/12/24 06:27 76 19 95 01/12/24 06:02 121/59 L 01/12/24 06:00 82 20 121/63 94 Nasal Cannula 2 01/12/24 05:00 72 20 121/86 95 Nasal Cannula 2 01/12/24 04:00 37.0 C 71 19 127/77 97 CPAP 5 01/12/24 03:00 70 21 124/90 96 CPAP 5
[2024-01-12 21:09] VITALS: RESP 16
--- NOTE | 2024-01-13 13:36 | Surgery Progress Note ---
Date of Service January 13, 2024 Assessment & Plan (1) Claudication of left lower extremity: Plan: Patient doing well post op. She lives alone and would benefit for a short stay at rehab prior to going home. Admission and Anticipated Discharge Date Admission Date: January 11, 2024 Subjective Patient complaining of pain in her foot intermittently. She is ambulating. Physical Exam Constitutional: WD/WN, vitals as above Respiratory: normal respiratory effort; no respiratory distress Cardiovascular: RRR, no murmur, no edema Skin: + incision (prevena in place) Neurologic: CN's II-XI intact bilaterally and moves all extremities Psychiatric: A+Ox3, euthymic affect Results & Data Vital Signs (Past 12 Hours) Vital Signs Temp Pulse Resp BP Pulse Ox O2 Del Method O2 Flow Rate 01/13/24 08:04 Nasal Cannula 2 01/13/24 07:44 37.1 C 83 16 116/69 92 Nasal Cannula 2
[2024-01-13] MEDS: LANTUS PER UNIT CHARGE SC SCH (20:54)
[2024-01-14 07:56] VITALS: BP 102/65
[2024-01-14 08:09] VITALS: PULSE 70; TEMP 98.2
--- NOTE | 2024-01-14 11:07 | Surgery Progress Note ---
Date of Service January 14, 2024 Assessment & Plan (1) Claudication of left lower extremity: Plan: Patient doing well post op. She lives alone and would benefit for a short stay at rehab prior to going home. OK for d/c after placed at rehab. 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 Patient complaining of incisional pain and mild occasional BL foot pain. Pain controlled with medication. She is ambulating. Review of Systems Review of Systems: All systems reviewed & are unremarkable except as noted in HPI & below Physical Exam Constitutional: WD/WN, vitals as above + morbidly obese, cooperative and comfortable; not in distress Respiratory: normal respiratory effort, lungs clear to auscultation Auscultation: + diminished lung sounds Cardiovascular: Rate/Rhythm: regular rate and regular rhythm Vessels: posterior tibial pulses present (+ doppler BLE) and dorsalis pedis pulses present (+doppler BLE); + abnormal peripheral pulses Extremities: normal capillary refill (normal LLE, RLE 4 seconds); no edema Gastrointestinal (Abdomen): Inspection/Auscultation: abdomen normal to inspection and normal bowel sounds Percussion/Palpation: abdomen soft; abdomen nontender Musculoskeletal: no cyanosis or clubbing, extremities motor strength 5/5 Skin: + incision (L groin incision prevena, +t dana mild swelling, no hematoma) Neurologic: moves all extremities and awake; no focal motor deficits and not confused Psychiatric: A+Ox3, euthymic affect Results & Data Vital Signs (Past 12 Hours) Vital Signs Temp Pulse Resp BP Pulse Ox O2 Del Method O2 Flow Rate 01/14/24 08:08 36.8 C 70 16 94 Nasal Cannula 2 01/14/24 07:56 102/65 01/14/24 07:45 Nasal Cannula, CPAP 2
--- NOTE | 2024-01-14 12:11 | Pharmacy Report ---
Pharmacy Glycemic Short Note 2 - Date of Service January 14, 2024 - Glycemic Short BSG Results (Last 24 hours): 01/13/24 01/13/24 01/14/24 16:35 20:38 07:09 POC Glucose 177 H 208 H 164 H 01/14/24 11:29 POC Glucose 182 H OUTPATIENT ANTIDIABETIC REGIMEN: * Basaglar 20 units SC HS * Metformin 500 mg PO BIDM * Glimepiride 4 mg PO with breakfast * HbA1c: 8.8% (01/12/24) ASSESSMENT: 01/13 * Endarterectomy postop day #3. * BSGs elevated throughout the day yesterday. HS lantus increased to 25 units starting 01/12 and parameters of bolus insulin were tightened starting with lunch dose yesterday. BSG goal range was also decreased. 64 units of insulin total given yesterday--25units were basal and 39 units were bolus. * BSGs today better controlled so far today so will continue the same basal and bolus insulin regimens. 01/11 * 73 yo F admitted on 01/11/24 postoperatively following an endarterectomy with Dr. Ruffin. Pharmacy has been consulted to assist with inpatient glycemic management. Patient is a Type 2 diabetic as an outpatient. Please refer to outpatient regimen and most recent HbA1c above. * Postop BSGs last evening were 282-244-120 mg/dL. Received 30 units of basal + 12 units of bolus last night. No steroids received. Tolerating a T2DM diet. * Fasting BSG this AM was 162 mg/dL. Will reduce basal to home dose of 20 units tonight. * Tightened carb ratio this AM but lunchtime BSG increased to 231 mg/dL so tightened carb ratio further with lunch to reflect weight/stress of 3. PLAN FOR INPATIENT GLYCEMIC CONTROL: * Hold outpatient diabetes medications * Basal insulin * Lantus 25 units SC HS * Bolus insulin * NovoLog per scale ACHS or Q6hrs while NPO * Goal Range: Low 110mg/dL - High 140 mg/dL * Correction Factor: 15 mg/dL/unit * Nutritional / Prandial insulin per carb ratio of 1 unit per 5 grams CHO consumed
[2024-01-14 12:32] VITALS: O2SAT 86
== END 2024-01-14 14:49 | DRG 253 ==
LOC: ASU 05:22 → 1E 07:42 → 3W 01-12 16:52
DX: Z79.02 Long term (current) use of antithrombotics/antiplatelets; E11.22 Type 2 diabetes mellitus with diabetic chronic kidney disease; I27.20 Pulmonary hypertension, unspecified; Z88.6 Allergy status to analgesic agent; I25.10 Atherosclerotic heart disease of native coronary artery without angina pectoris; G47.33 Obstructive sleep apnea (adult) (pediatric); I70.212 Atherosclerosis of native arteries of extremities with intermittent claudication, left leg; I08.2 Rheumatic disorders of both aortic and tricuspid valves; Z87.891 Personal history of nicotine dependence; Z79.84 Long term (current) use of oral hypoglycemic drugs; N18.9 Chronic kidney disease, unspecified; Z79.82 Long term (current) use of aspirin; E66.9 Obesity, unspecified; I12.9 Hypertensive chronic kidney disease with stage 1 through stage 4 chronic kidney disease, or unspecified chronic kidney disease; Z95.0 Presence of cardiac pacemaker; E11.51 Type 2 diabetes mellitus with diabetic peripheral angiopathy without gangrene; I77.1 Stricture of artery; E78.5 Hyperlipidemia, unspecified; Z68.42 Body mass index [BMI] 45.0-49.9, adult; D64.9 Anemia, unspecified